=== PATIENT | male | born 1975 | race American Indian/Alaskan Native ===

== ENCOUNTER 2025-01-27 17:50 | Emergency (ER) | payer MEDICAID, OTHER ==
[2025-01-27 18:28] LABS: BASOPHILS ABSOLUTE AUTO 0.04 10^3/uL (0.00-0.50); BASOPHILS PERCENT AUTO 0.3 % (0-1); EOSINOPHILS ABSOLUTE AUTO 0.07 10^3/uL (0.00-1.50); EOSINOPHILS PERCENT AUTO 0.5 % (0-6); IMMATURE GRAN ABSOLUTE AUTO 0.03 10^3/uL (0.00-0.49); IMMATURE GRAN PERCENT AUTO 0.2 % (0.0-4.9); LYMPHOCYTES ABSOLUTE AUTO 1.16 10^3/uL (0.60-5.00); LYMPHOCYTES PERCENT AUTO 8.8 % (24-44); MONOCYTES ABSOLUTE AUTO 0.99 10^3/uL (0.00-1.50); MONOCYTES PERCENT AUTO 7.5 % (0-10); NEUTROPHILS ABSOLUTE AUTO 10.89 x10^3/uL (1.80-8.00); NEUTROPHILS PERCENT AUTO 82.7 % (41-71); PLATELET COUNT,PLT 220 10^3/uL (150-400); RED BLOOD CELL COUNT 5.47 x10^6/uL (4.50-6.00); WHITE BLOOD CELL COUNT,WBC 13.2 10^3/uL (4.0-11.0)
[2025-01-27] MEDS: Ondansetron 4 MG/2 ML SDV IVPUSH PRN (18:36)
[2025-01-27 18:44] LABS: ALANINE AMINOTRANSFERASE,ALT 26 U/L (12-78); ASPARTATE AMNIOTRANSFERASE,AST 15 U/L (15-37); BILIRUBIN TOTAL 0.6 mg/dL (0.0-1.0); BLOOD UREA NITROGEN,BUN 23 mg/dL (7-18); CARBON DIOXIDE,CO2 24 mmol/L (21-32); CHLORIDE,CL 101 mEq/L (98-106); CREATININE 1.0 mg/dL (0.7-1.3); GLUCOSE RANDOM 137 mg/dL (75-99); POTASSIUM,K 4.0 mEq/L (3.5-5.0); PROTEIN TOTAL,TP 7.6 g/dL (6.4-8.2); SODIUM,NA 138 mEq/L (136-145)
[2025-01-27 18:46] LABS: ESTIMATED GFR 93 mL/min (>=60); ETHANOL BLOOD MEDICAL < 3 mg/dL (0-3)
[2025-01-27] MEDS: Diphtheria,Pertussis(Acell),Tetanus Vaccine 0.5 ML Syringe IM ONE (18:58)
[2025-01-27] MEDS: Iopamidol 755 Mg/ML 100 ML Bottle IVPUSH ONE (19:00)
[2025-01-27] MEDS: fentaNYL 50 MCG/ML SDV IVPUSH ONE (19:38)
[2025-01-27] MEDS: Take Home: Acetaminophen/oxyCODONE 325-5 MG, 2 Tab Pack PO ONE (20:43)
[2025-01-27] MEDS: Take Home: Cyclobenzaprine 10 MG Tab, 4 Tab Pack PO ONE (20:43)
== END 2025-01-27 21:30 | disposition home or self-care (01) ==
LOC: CC.ED 17:50
DX: S42.115A Nondisplaced fracture of body of scapula, left shoulder, initial encounter for closed fracture (principal); S92.424A Nondisplaced fracture of distal phalanx of right great toe, initial encounter for closed fracture; Z86.73 Personal history of transient ischemic attack (TIA), and cerebral infarction without residual deficits; Z23 Encounter for immunization; W13.2XXA Fall from, out of or through roof, initial encounter; Y93.89 Activity, other specified
CPT/HCPCS: 28495; 36415; 70450; 71045; 71260; 72125; 72170; 73030-LT; 73630-RT; 74177; 80053; 80307; 83605; 83735; 84484; 85025; 90471; 90715; 93005; 96361; 96374; 96375; 99284-25; A9270-GY; J1171; J2003; J2405; J3010; J7030; Q9967